=== PATIENT | male | born 1960 | race Caucasian/White ===

== ENCOUNTER → 2020-07-11 08:17 | Outpatient (BNVA) | payer SELFPAY | PROVIDERS: Visit Provider Family Medicine | DX: R35.1 Nocturia (principal); Z13.6 Encounter for screening for cardiovascular disorders; I77.9 Disorder of arteries and arterioles, unspecified | CPT/HCPCS: 80053; 80061; 84153; 85025 ==

== ENCOUNTER 2020-09-07 12:59 | Outpatient (CLI) | payer SELFPAY ==
--- NOTE | 2020-09-07 13:30 | USCV_ITS ---
LATRELLRETA MARTINEZ Age: 60 Gender: M : 1960 Exam Date: 09/07/2020 13:18 Ordering Phys: Carmen Rodgers DO Technologist: Choco Finn [place] Location[place] [facility] [place] Indication: ? stenosis Risk Factors: Previous Vascular Surgery: Right Brachial BP: / Left Brachial BP: / Right Left Velocity (cm/s) Spectral Plaque Velocity (cm/s) Spectral Plaque Syst/Diast Broadening Syst/Diast Broadening 69.50/ 20.90 Prox CCA 71.70 / 20.90 70.60/ 22.10 Mid CCA 77.20 / 27.60 63.90/ 16.50 Distal CCA 80.50 / 24.30 67.30/ 16.50 Prox ICA 79.40 / 24.30 51.80/ 17.60 Mid ICA 90.40 / 32.00 59.80/ 25.90 Distal ICA 90.40 / 30.90 93.70 ECA 62.80 0.95 ICA/CCA 1.12 Antegrade Vertebral Antegrade 40.40/ 13.70 cm/s 50.70/ 19.80 cm/s Tri Subclavian 81.60 113.6 0 FINDINGS Intimal thickening in the common carotid and internal carotid arteries bilaterally. Minimal plaques at the bifurcations. Antegrade flow in the vertebral arteries bilaterally. Normal Doppler flow velocities in the external carotid arteries bilaterally CONCLUSIONS Minimal plaques at the bifurcation with intimal thickening in the common carotid and internal carotid arteries bilaterally. No significant stenosis, based on the above findings Dr Oli Greene MD [facility] (Electronically Signed) Final Date: 08 September 2020 19:06 S
== END 2020-09-07 13:00 | disposition home or self-care (01) ==
LOC: RAD 13:09
PROVIDERS: PCP Family Medicine; Visit Provider Family Medicine
DX: I77.9 Disorder of arteries and arterioles, unspecified (principal); I65.23 Occlusion and stenosis of bilateral carotid arteries
CPT/HCPCS: 93880

== ENCOUNTER → 2020-09-14 11:36 | Outpatient (BNVA) | payer OTHER, SELFPAY | PROVIDERS: PCP Family Medicine; Visit Provider Surgery | DX: Z01.812 Encounter for preprocedural laboratory examination (principal); Z20.828 Contact with and (suspected) exposure to other viral communicable diseases | CPT/HCPCS: 87635 ==

== ENCOUNTER 2020-09-19 06:43 | Day surgery (SDC) | payer SELFPAY ==
[2020-09-19 06:53] VITALS: BP 133/76; PULSE 66; RESP 18; TEMP 36.1; O2SAT 97
[2020-09-19] MEDS: sodium chloride 0.9% 1,000 ML 30 ML IV (07:25)
--- NOTE | 2020-09-19 07:25 | ANES.PREANE2 ---
Pre-Anesthetic Assessment Pre-Anesthetic Assessment: Height/Weight: Height 1.68 m Weight 101.151 kg Temp Pulse Resp BP Pulse Ox 97.0 F L 66 18 133/76 97 09/19/20 06:53 09/19/20 06:53 09/19/20 06:53 09/19/20 06:53 09/19/20 06:53 Preop Diagnosis: screening colonoscopy Proposed Procedure: Operation Date: 09/19/20 07:30 Proposed Procedures p Colonoscopy 99529 z12.11(Not Applicable) - Larry Wheeler MD Was Beta Olinda taken within 24 hours: N/A Last intake: Intake Last Liquid Date 09/18/20 Last Liquid Time 20:00 Last Solid Date 09/17/20 Last Solid Time 20:00 Social: Social History: No alcohol and No tobacco Exam: Pre-Anes Outpt Exam: alert, oriented x 3, clear to auscultation bilaterally and regular rate & rhythm Airway: Submandibular: Other (Marginal submandibular space ) Cervical ROM: Other (limited) MP: 3 Pulmonary: Pulmonary: Sleep apnea CV/HEM: CV/HEM: None reported : : None reported Hepatic: Hepatic: None reported GI: GI: GERD Metabolic: Metabolic: Morbid obesity Musc/skel: Musc/skel: None reported Neuropsych: Neuropsych: None reported Anesthetic Plan: ASA status: 3 Anesthesia: MAC PFSH Anesthesia PFSH: Medical History (Updated 08/25/20 @ 14:13 by Larry Wheeler MD) Umbilical hernia Surgical History No pertinent past surgical history Family History Other CAD (coronary artery disease) Stroke Denies family history of Anesthesia complication Bleeding disorder Cancer Social History Smoking and tobacco status: former smoker Alcohol intake: never Household members: spouse Marital status: Current occupational status: employed History of recent travel: Yes ([place] 2018) Data Anesthesia Cardiac Studies: No Data to Display
--- NOTE | 2020-09-19 07:34 | W.PM.OPSUD ---
Surgery/Procedure H&P Update DATE OF PROCEDURE: September 19, 2020 DATE H&P PERFORMED: 08/25/20 H&P UPDATE INFORMATION: I have reviewed H&P completed within last 30 days, I have examined patient prior to procedure and No changes to prior documentation PREOP DIAGNOSIS: screening colonoscopy PLANNED PROCEDURE: Operation Date: 09/19/20 07:30 Proposed Procedures p Colonoscopy 03009 z12.11(Not Applicable) - Larry Wheeler MD
[2020-09-19 08:00] VITALS: BP 92/55; PULSE 65; RESP 18; TEMP 36.1; O2SAT 97
[2020-09-19 08:10] VITALS: BP 108/67; PULSE 98; RESP 18; O2SAT 97
--- NOTE | 2020-09-19 11:08 | ANE.PACU2 ---
Inpatient post-anesthesia follow up: Airway intact: Yes Vital signs: Temperature 97 F Pulse Rate 98 Respiratory Rate 18 Blood Pressure 108/67 Pulse Oximetry 97 Oxygen Delivery Me thod Room Air Oxygen Flow Rate 3 Fraction of Inspir ed Oxygen Hydration adequate: Yes Nausea and vomiting: No Pain level: 2 Mental status: Baseline
== END 2020-09-19 08:19 | disposition home or self-care (01) ==
PROVIDERS: PCP Family Medicine; Visit Provider Surgery
PROC: 0DJD8ZZ Inspection of Lower Intestinal Tract, Via Natural or Artificial Opening Endoscopic (ICD-10-PCS; CPT 45378; principal; 2020-09-19 07:30)
DX: Z12.11 Encounter for screening for malignant neoplasm of colon (principal); D12.2 Benign neoplasm of ascending colon; D12.3 Benign neoplasm of transverse colon; K64.8 Other hemorrhoids; G47.10 Hypersomnia, unspecified; K21.9 Gastro-esophageal reflux disease without esophagitis; E66.01 Morbid (severe) obesity due to excess calories; Z68.36 Body mass index [BMI] 36.0-36.9, adult; Z87.891 Personal history of nicotine dependence
CPT/HCPCS: 12345; 45380; 45385; 88305; J7030

== ENCOUNTER 2024-07-14 09:02 | Day surgery (SDC) | payer BC, MEDICAID, SELFPAY ==
--- NOTE | 2024-07-14 08:43 | P.ANESASSM_ITS ---
Pre-Anesthetic Assessment Height/Weight: Height 1.68 m Operation Date: 07/14/24 10:00 Proposed Procedures p Colonoscopy - 60289, G0105, Z86.010(Not Applicable) - Shahzad Black DO Familial anesthetic complications: none Was Beta Olinda taken within 24 hours: N/A (took yesterday) Was Clonidine taken within 24 hours: N/A Social No alcohol and No tobacco quit smoking and drinking in 1993 Exam alert and oriented x 3 Airway Submandibular: within normal limits Cervical ROM: within normal limits Mallampati: Class III Dentition: full History/ROS No significant history except as noted Pulmonary Sleep Apnea CV/HEM Stable Angina, Coronary Artery Disease and Hypertension None reported Hepatic None reported GI None reported Metabolic Hyperlipidemia [facility] [place] reported Neuropsych None reported Anesthetic Plan ASA status: 3 Anesthesia: Anesthesia Evaluation, General and MAC Medications/Allergies Home Medications Medication Instructions Recorded Confirmed Last Taken Type cholecalciferol (vitamin D3) 10 10 mcg PO DAILY 08/25/20 07/14/24 07/12/24 History mcg (400 unit) capsule omega-3 fatty acids 500 mg capsule 500 mg PO DAILY 08/25/20 07/14/24 07/12/24 History metoprolol tartrate 25 mg tablet 25 mg PO BID 30 days #60 tabs 12/03/22 07/14/24 07/12/24 Rx nitroglycerin 0.4 mg sublingual 0.4 mg sublingual Q5M PRN chest 12/03/22 07/14/24 Unknown Rx tablet pain 30 days #30 tabs amlodipine 2.5 mg tablet 2.5 mg PO DAILY HTN #90 tabs 05/20/24 07/14/24 07/12/24 Rx Allergies Allergy/AdvReac Type Severity Reaction Status Date / Time No Known Allergies Allergy Verified 05/27/24 08:55 [facility] Anesthesia Medical History Colon polyps Umbilical hernia Surgical History Status post colonoscopy with polypectomy (09/19/20) Family History Other CAD (coronary artery disease) Stroke Denies family history of Anesthesia complication Bleeding disorder Cancer Social History Smoking and tobacco/nicotine status: former use of tobacco/nicotine Alcohol intake: never Substance/Drug Use: never Household members: spouse Marital status: Current occupational status: employed Data Anesthesia Cardiac Studies: No Data to Display
[2024-07-14 09:26] VITALS: BP 138/86; PULSE 64; RESP 17; TEMP 36.2; O2SAT 95; BMI 38.5
[2024-07-14] MEDS: sodium chloride 0.9% 1,000 ML 30 ML IV (09:35)
--- NOTE | 2024-07-14 09:54 | PM.HP ---
Providers/Chief Complaint Primary Care Provider: Luisa Ruby MD Chief Complaint: Z86.010 History of Present Illness Elroy Ratliff is a 63 year old male Review of Systems General: Reports: 10 or more systems reviewed and unremarkable except in HPI and below Medications/Allergies Home Medications Medication Instructions Recorded Confirmed Last Taken Type cholecalciferol (vitamin D3) 10 10 mcg PO DAILY 08/25/20 07/14/24 07/12/24 History mcg (400 unit) capsule omega-3 fatty acids 500 mg capsule 500 mg PO DAILY 08/25/20 07/14/24 07/12/24 History metoprolol tartrate 25 mg tablet 25 mg PO BID 30 days #60 tabs 12/03/22 07/14/24 07/12/24 Rx nitroglycerin 0.4 mg sublingual 0.4 mg sublingual Q5M PRN chest 12/03/22 07/14/24 Unknown Rx tablet pain 30 days #30 tabs amlodipine 2.5 mg tablet 2.5 mg PO DAILY HTN #90 tabs 05/20/24 07/14/24 07/12/24 Rx Allergies Allergy/AdvReac Type Severity Reaction Status Date / Time No Known Allergies Allergy Verified 05/27/24 08:55 PFSH Acute PFSH: Medical History Colon polyps Umbilical hernia Surgical History Status post colonoscopy with polypectomy (09/19/20) Family History Other CAD (coronary artery disease) Stroke Denies family history of Anesthesia complication Bleeding disorder Cancer Social History Smoking and tobacco/nicotine status: former use of tobacco/nicotine Alcohol intake: never Substance/Drug Use: never Household members: spouse Marital status: Current occupational status: employed Vitals/I&O/Wt Last Vital Signs Temp 97.1 F L 07/14/24 09:26 Pulse 64 07/14/24 09:26 Resp 17 07/14/24 09:26 BP 138/86 07/14/24 09:26 Pulse Ox 95 07/14/24 09:26 O2 Del Method Room Air 07/14/24 09:26 Weight last 48 hrs Weight 239 lb A&P Assessment and plan (1) History of colon polyps: Plan Screening colonoscopy Attestations Medical Necessity Statement*: Home Coding Level of Care Code Acute Code for Chg Fwd Diagnoses History of colon polyps Z86.010
[2024-07-14 10:11] VITALS: BP 122/71; PULSE 64; RESP 18; TEMP 36.1; O2SAT 94
--- NOTE | 2024-07-14 10:13 | ANE.PACU2 ---
Inpatient post-anesthesia follow up: Airway intact: Yes Vital signs: Temperature 97.1 F Pulse Rate 64 Respiratory Rate 17 Blood Pressure 138/86 Pulse Oximetry 95 Oxygen Delivery Me thod Room Air Oxygen Flow Rate Fraction of Inspir ed Oxygen Hydration adequate: Yes Nausea and vomiting: No Pain level: 1 Mental status: Baseline
[2024-07-14 10:29] VITALS: BP 127/79; PULSE 62; RESP 18; O2SAT 96
--- NOTE | 2024-07-14 10:32 | PC.NURSE ---
Interpretation services used for [place] language while interacting with patient.
== END 2024-07-14 10:42 | disposition home or self-care (01) ==
PROVIDERS: PCP Family Medicine; Visit Provider Surgery
PROC: 0DJD8ZZ Inspection of Lower Intestinal Tract, Via Natural or Artificial Opening Endoscopic (ICD-10-PCS; CPT 45378; principal; 2024-07-14 10:00)
DX: Z12.11 Encounter for screening for malignant neoplasm of colon (principal); D12.3 Benign neoplasm of transverse colon; Z87.891 Personal history of nicotine dependence; I25.10 Atherosclerotic heart disease of native coronary artery without angina pectoris; I10 Essential (primary) hypertension; E78.5 Hyperlipidemia, unspecified
CPT/HCPCS: 45385; 88305; J2704; J7030

== ENCOUNTER → 2025-01-13 11:41 | Outpatient (BNVA) | payer BC, MEDICAID, SELFPAY | PROVIDERS: PCP Family Medicine; Visit Provider Internal Medicine Cardiovascular Disease | DX: R07.9 Chest pain, unspecified (principal) | CPT/HCPCS: 93005 ==